=== PATIENT | male | born 1985 | race Hispanic/Latino ===

== ENCOUNTER 2017-04-24 20:27 | Emergency (ER) | payer OTHER ==
[2017-04-24 20:56] VITALS: BP 132/85; PULSE 80; RESP 20; TEMP 97.9; O2SAT 98
--- NOTE | 2017-04-24 22:12 | C.PDOC ---
History Of Present Illness 31 yr old male presents to the ER stating he was vomiting earlier this morning. 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 States the vomiting has since resolved and would like a work note to go back to work tomorrow. Patient denies fever, abdominal pain, diarrhea, dysuira, weakness or numbness. Time Seen by Provider: 04/24/17 21:00 Chief Complaint (Nursing): Cough, Cold, Congestion History Per: Patient History/Exam Limitations: no limitations Onset/Duration Of Symptoms: Sudden Onset Current Symptoms Are (Timing): Gone Past Medical History Reviewed: Historical Data, Nursing Documentation, Vital Signs Vital Signs: Last Vital Signs Temp 97.9 F 04/24/17 20:51 Pulse 80 04/24/17 20:51 Resp 20 04/24/17 22:18 BP 132/85 04/24/17 20:51 Pulse Ox 98 04/24/17 22:12 - Medical History PMH: Bipolar Disorder, Schizophrenia Family History: States: No Known Family Hx - Social History Hx Tobacco Use: No Hx Alcohol Use: No Hx Substance Use: No - Immunization History Hx Tetanus Toxoid Vaccination: No Hx Influenza Vaccination: No Hx Pneumococcal Vaccination: No Review Of Systems Except As Marked, All Systems Reviewed And Found Negative. Constitutional: Negative for: Fever Gastrointestinal: Positive for: Vomiting (Resolved now). Negative for: Abdominal Pain, Diarrhea Genitourinary: Negative for: Dysuria Neurological: Negative for: Weakness, Numbness Physical Exam - Physical Exam Appears: Non-toxic, No Acute Distress Skin: Warm, Dry, No Rash Head: Atraumatic, Normacephalic Oral Mucosa: Moist Cardiovascular: Rhythm Regular, No Murmur Respiratory: Normal Breath Sounds, No Rales, No Rhonchi, No Stridor, No Wheezing Neurological/Psych: Oriented x3, Normal Speech, Normal Motor, Normal Sensation ED Course And Treatment O2 Sat by Pulse Oximetry: 98 (RA) Pulse Ox Interpretation: Normal Disposition - Disposition Referrals: Isa Guzmán MD [Medical Doctor] - Disposition: HOME/ ROUTINE Disposition Time: 22:09 Condition: GOOD Additional Instructions: Follow up with the medical doctor within 1-2 days. Return if worsened. 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 - Scribe Statement The provider has reviewed the documentation as recorded by the Scribe Arlette Morales All medical record entries made by the Scribe were at my direction and personally dictated by me. I have reviewed the chart and agree that the record accurately reflects my personal performance of the history, physical exam, medical decision making, and the department course for this patient. I have also personally directed, reviewed, and agree with the discharge instructions and disposition.
== END 2017-04-24 22:18 | disposition home or self-care (01) ==
LOC: C.ER 20:27
DX: R11.10 Vomiting, unspecified (principal)

== ENCOUNTER 2017-04-28 08:23 | Emergency (ER) | payer OTHER ==
[2017-04-28 08:36] VITALS: BMI 28.7
--- NOTE | 2017-04-28 09:01 | C.PDOC ---
History Of Present Illness 31 y/o male hx of bipolar disorder presents to the ED c/o cough, congestion , GI bug, and sore throat for 2 days. 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 The patient states that he "cannot make it to work due to these symptoms".The patient denies fever, nausea, vomiting, chills, headaches, dizziness, and rash. Time Seen by Provider: 04/28/17 08:36 Chief Complaint (Nursing): Cough, Cold, Congestion History Per: Patient History/Exam Limitations: no limitations Onset/Duration Of Symptoms: Days Current Symptoms Are (Timing): Still Present Associated Symptoms: Sore Throat, Cough. denies: Fever, Chills, Vomiting, Diarrhea Recent travel outside of the [place]: No Additional History Per: Patient Past Medical History Reviewed: Historical Data, Nursing Documentation, Vital Signs Vital Signs: Last Vital Signs Temp 98 F 04/28/17 09:42 Pulse 84 04/28/17 09:42 Resp 20 04/28/17 09:42 BP 123/75 04/28/17 09:42 Pulse Ox 99 04/28/17 09:42 - Medical History PMH: Bipolar Disorder Denies: HIV, HTN, Schizophrenia (pt denies as per patient), Seizures, Sexually Transmitted Disease Surgical History: No Surg Hx Family History: States: No Known Family Hx - Social History Hx Tobacco Use: No Hx Alcohol Use: No Hx Substance Use: No - Immunization History Hx Tetanus Toxoid Vaccination: No Hx Influenza Vaccination: No Hx Pneumococcal Vaccination: No Review Of Systems Except As Marked, All Systems Reviewed And Found Negative. Constitutional: Negative for: Fever, Chills Cardiovascular: Negative for: Chest Pain Respiratory: Positive for: Cough, Other (congestion ). Negative for: Shortness of Breath Gastrointestinal: Negative for: Nausea, Vomiting, Abdominal Pain, Diarrhea, Constipation Skin: Negative for: Rash Psych: Negative for: Anxiety Physical Exam - Physical Exam Appears: Non-toxic, No Acute Distress Skin: Warm, Dry Head: Atraumatic, Normacephalic Eye(s): bilateral: PERRL Oral Mucosa: Moist Throat: No Erythema Neck: Supple Chest: Symmetrical Cardiovascular: Rhythm Regular Respiratory: Normal Breath Sounds, No Rales, No Rhonchi, No Wheezing Gastrointestinal/Abdominal: Soft, No Tenderness, No Guarding, No Rebound Extremity: Capillary Refill (2<sec.) Neurological/Psych: Oriented x3, Normal Speech, Normal Cognition Gait: Steady ED Course And Treatment O2 Sat by Pulse Oximetry: 98 (RA) Medical Decision Making Medical Decision Making: The flu test and Motrin is has been administered. The flu test is negative. . Disposition Counseled Patient/Family Regarding: Studies Performed, Diagnosis, Need For Followup, Rx Given - Disposition Referrals: [facility] [Outside] [facility] [Outside] Disposition: HOME/ ROUTINE Disposition Time: 10:00 Condition: STABLE Additional Instructions: Return to ED if any increase symptoms Instructions: Upper Respiratory Infection (ED) Forms: [facility] (Bengali), Work Excuse - POA Present On Arrival: None - Clinical Impression Clinical Impression: Influenza-like illness, Upper respiratory infection - PA / BILLING CHECKER / Resident Statement MD/DO has examined the patient and agrees with the treatment plan. - Scribe Statement The provider has reviewed the documentation as recorded by the Scribvilla Del Rosario All medical record entries made by the Sohaibvilla were at my direction and personally dictated by me. I have reviewed the chart and agree that the record accurately reflects my personal performance of the history, physical exam, medical decision making, and the department course for this patient. I have also personally directed, reviewed, and agree with the discharge instructions and disposition.
[2017-04-28 09:42] VITALS: BP 123/75; PULSE 84; RESP 20; TEMP 98
[2017-04-28 18:26] VITALS: O2SAT 98
== END 2017-04-28 09:43 | disposition home or self-care (01) ==
LOC: C.ER 08:23
DX: J11.1 Influenza due to unidentified influenza virus with other respiratory manifestations (principal); J06.9 Acute upper respiratory infection, unspecified

== ENCOUNTER 2017-06-05 21:36 | Emergency (ER) | payer OTHER ==
[2017-06-05 21:37] VITALS: BMI 28.7
[2017-06-05 22:26] VITALS: BP 124/84; TEMP 98.2
--- NOTE | 2017-06-05 23:31 | C.PDOC ---
History Of Present Illness Pt c/o diarrhea. Time Seen by Provider: 06/05/17 23:07 Chief Complaint (Nursing): GI Problem History Per: Patient Onset/Duration Of Symptoms: Hrs (today) Current Symptoms Are (Timing): Still Present Context: Food (?) Severity: Moderate Quality Of Discomfort: denies: "Pain" Associated Symptoms: Diarrhea Alleviating Factors: OTC Meds (Pepto-Bismol) Last Bowel Movement: Today Additional History Per: Prior Records Past Medical History Reviewed: Historical Data, Nursing Documentation, Vital Signs Vital Signs: Last Vital Signs Temp 98.2 F 06/05/17 22:23 Pulse 86 06/05/17 22:23 Resp 20 06/05/17 22:23 BP 124/84 06/05/17 22:23 Pulse Ox 99 06/05/17 22:23 - Medical History PMH: Bipolar Disorder Surgical History: No Surg Hx Family History: States: Unknown Family Hx - Social History Hx Tobacco Use: No Hx Alcohol Use: No Hx Substance Use: No - Immunization History Hx Tetanus Toxoid Vaccination: No Hx Influenza Vaccination: No Hx Pneumococcal Vaccination: No Review Of Systems Except As Marked, All Systems Reviewed And Found Negative. Constitutional: Negative for: Fever, Weakness Cardiovascular: Negative for: Chest Pain, Light Headedness Respiratory: Negative for: Shortness of Breath Gastrointestinal: Positive for: Diarrhea. Negative for: Nausea, Vomiting, Abdominal Pain, Melena, Hematochezia, Hematemesis Genitourinary: Negative for: Dysuria Musculoskeletal: Negative for: Neck Pain, Back Pain Skin: Negative for: Rash Neurological: Negative for: Weakness, Numbness Physical Exam - Physical Exam Appears: Non-toxic, No Acute Distress Skin: Normal Color, Warm, Dry, No Rash Head: Atraumatic, Normacephalic Eye(s): bilateral: Normal Inspection, PERRL, EOMI Oral Mucosa: Moist Neck: Normal ROM, Supple Cardiovascular: Rhythm Regular Respiratory: Normal Breath Sounds, No Accessory Muscle Use Gastrointestinal/Abdominal: Soft, No Tenderness, No Distention Back: No CVA Tenderness Extremity: Normal ROM Neurological/Psych: Oriented x3, Normal Motor, Normal Sensation ED Course And Treatment O2 Sat by Pulse Oximetry: 99 Pulse Ox Interpretation: Normal Disposition Counseled Patient/Family Regarding: Diagnosis, Need For Followup - Disposition Referrals: Isa Guzmán MD [Medical Doctor] - Disposition: HOME/ ROUTINE Disposition Time: 23:30 Condition: STABLE Additional Instructions: Drink plenty of fluids. Follow up with your doctor. Return to the ER if you develop fever, vomiting, abdominal pain, bloody stools, worsening of symptoms or if you have any other concerns. Instructions: Acute Diarrhea (ED) - Clinical Impression Clinical Impression: Acute diarrhea
[2017-06-06 00:05] VITALS: PULSE 82; RESP 18; O2SAT 100
== END 2017-06-06 00:05 | disposition home or self-care (01) ==
LOC: C.ER 21:36
DX: R19.7 Diarrhea, unspecified (principal)